=== PATIENT | female | born 1980 | race Caucasian/White ===

== ENCOUNTER 2018-06-03 10:38 | Emergency (ER) | payer MEDICAID ==
[~2018-06-03] VITALS: Ht 162.6 cm; Wt 54.4 kg
[~2018-06-03 10:38] MED LIST: A-B OTIC EAR DR15 ML OT; AMOXICILLIN500 M1 PO; AMOXICILLIN875 MG PO; CIPRO500 MG PO; FAMOTIDINE PO; FLEXERIL PO; HYDROCODONE-AP1 EAC6 PO; IBUPROFEN 400400 M2 PO; IBUPROFEN 800800 M1 PO; LEVAQUIN 500 M500 MG PO; NOHOMEMEDICATIONS; NORCO 5-325 TA1 EAC1 PO; PERCOCET 5-3251 EACH PO; PHENERGAN 25 MG25 M1 PO; PHENERGAN 25 MG25 MG PO; PRENATAL; PROMS25 WY RECTAL; TRAMADOL 50 MG50 MG PO; ULTRAM 50MG TAB50 MG PO; ZOFRAN; ZOFRAN ODT4 MG PO; ZOFRAN4 MG PO
[2018-06-03 10:48] VITALS: BP 129/65
[2018-06-03] MEDS ORDERED: MEDROLDOSEPACK PO (10:56)
[2018-06-03] MEDS ORDERED: PROMETHAZINE V473 ML PO (10:56)
[2018-06-03] MEDS ORDERED: ZPAK PO (10:56)
[2018-06-03] MEDS ORDERED: PROAIR HFA8.5 GM INH (10:57)
[2018-06-03] MEDS ORDERED: TESSALON PERLE100 MG PO (10:57)
== END 2018-06-03 11:07 | disposition home or self-care (01) ==
LOC: M.ERS 10:38
DX: J20.9 Acute bronchitis, unspecified (principal); J45.909 Unspecified asthma, uncomplicated; F17.210 Nicotine dependence, cigarettes, uncomplicated; Z90.711 Acquired absence of uterus with remaining cervical stump

== ENCOUNTER 2018-08-16 08:09 | Emergency (ER) | payer OTHER, MEDICAID ==
[~2018-08-16] VITALS: Ht 162.6 cm; Wt 56.7 kg
[~2018-08-16 08:09] MED LIST changes: +MEDROLDOSEPACK PO; +PROAIR HFA8.5 GM INH; +PROMETHAZINE V473 ML PO; +TESSALON PERLE100 MG PO; +ZPAK PO
[2018-08-16 08:38] LABS: HEMATOCRIT 39.5 % (37.0-47.0); HEMOGLOBIN 13.2 gm/dL (12.0-15.0); MCH 30.9 pg (26.0-34.0); MCHC 33.4 g/dL (28.0-37.0); MCV 92.5 fL (80.0-100.0); MPV 12.1 fl. (7.2-11.1); NUCLEATED RBCS 0 /100WBC; PLATELET COUNT* 144 thou/uL (150-400); RBC 4.26 mil/uL (4.20-5.00); RDW-CV 13.6 % (10.5-14.5); WBC 16.3 thou/uL (4.0-11.0)
[2018-08-16 08:46] LABS: CALCIUM 8.6 mg/dL (8.5-10.1); CREATININE 0.8 mg/dL (0.6-1.3); POTASSIUM 3.9 mmol/L (3.5-5.1)
[2018-08-16 08:50] LABS: TOTAL BILIRUBIN 0.4 mg/dL (<0.1-1.0); TOTAL PROTEIN 7.1 g/dL (6.4-8.2)
[2018-08-16] MEDS ORDERED: ZOFRAN ODT4 MG SUBLING ×2 (08:58→09:30)
[2018-08-16 09:20] LABS: ABSOLUTE LYMPHOCYTES 0.5 thou/uL (0.8-5.3); ABSOLUTE MONOCYTES 0.5 thou/uL (0.0-1.2); ABSOLUTE NEUTROPHILS 15.3 thou/uL (1.6-8.1)
[2018-08-16 09:21] LABS: PLATELET ESTIMATE ADEQUATE
[2018-08-16 09:36] VITALS: BP 101/52
== END 2018-08-16 09:38 | disposition home or self-care (01) ==
LOC: M.ERS 08:09
PROVIDERS: Family Medicine
DX: R11.2 Nausea with vomiting, unspecified (principal); R19.7 Diarrhea, unspecified; J45.909 Unspecified asthma, uncomplicated; Z90.710 Acquired absence of both cervix and uterus; F17.210 Nicotine dependence, cigarettes, uncomplicated

== ENCOUNTER 2018-10-22 03:50 | Emergency (ER) | payer OTHER, MEDICAID ==
[~2018-10-22] VITALS: Ht 162.6 cm; Wt 52.2 kg
[~2018-10-22 03:50] MED LIST changes: +ZOFRAN ODT4 MG SUBLING
[2018-10-22 04:14] LABS: ABSOLUTE BASOPHILS 0.1 thou/uL (0.0-0.2); ABSOLUTE LYMPHOCYTES 1.9 thou/uL (0.8-5.3); ABSOLUTE MONOCYTES 0.4 thou/uL (0.0-1.2); ABSOLUTE NEUTROPHILS 9.5 thou/uL (1.6-8.1); BASOPHILS 0.5 %; EOSINOPHILS 0.1 %; HEMATOCRIT 43.7 % (37.0-47.0); HEMOGLOBIN 14.3 gm/dL (12.0-15.0); LYMPHOCYTES 15.7 %; MCH 30.1 pg (26.0-34.0); MCHC 32.7 g/dL (28.0-37.0); MCV 92.1 fL (80.0-100.0); MONOCYTES 3.6 %; MPV 12.8 fl. (7.2-11.1); NUCLEATED RBCS 0 /100WBC; PLATELET COUNT* 168 thou/uL (150-400); POLYS 80.1 %; RBC 4.75 mil/uL (4.20-5.00); RDW-CV 13.5 % (10.5-14.5); WBC 11.9 thou/uL (4.0-11.0)
[2018-10-22 04:26] LABS: ALBUMIN 4.2 g/dL (3.4-5.0); POTASSIUM 3.5 mmol/L (3.5-5.1); TOTAL BILIRUBIN 0.6 mg/dL (<0.1-1.0); TOTAL PROTEIN 7.6 g/dL (6.4-8.2)
[2018-10-22 05:07] LABS: URINE BILIRUBIN NEGATIVE (Negative); URINE BLOOD NEGATIVE (Negative); URINE CLARITY CLEAR; URINE COLOR DARK YELLOW; URINE GLUCOSE-RANDOM 1+ (Negative); URINE LEUKOCYTES-REFLEX TRACE (Negative); URINE NITRITE-REFLEX NEGATIVE (Negative); URINE PROTEIN TRACE (Negative); URINE SPECIFIC GRAVITY >= 1.030 (1.005-1.030); URINE UROBILINOGEN 0.2 E.U./dl (0.2-1.0)
[2018-10-22 05:08] LABS: URINE KETONES 3+ (Negative)
[2018-10-22 05:10] LABS: AMP/METHAMP Negative (Negative); BARBITURATES Negative (Negative); BENZODIAZEPINES Negative (Negative); COCAINE Negative (Negative); METHADONE Negative (Negative); OPIATES Negative (Negative); PCP Negative (Negative); THC POSITIVE (Negative)
[2018-10-22 05:11] LABS: BACTERIA-REFLEX None Seen /HPF (None Seen); CASTS None Seen /LPF (None Seen); CRYSTALS None Seen /LPF (None Seen); MUCUS >6 Heavy strn/LPF (None Seen); SQUAMOUS >10 Many /LPF (0-3); URINE RBC 0-2 Rare /HPF (0-2); URINE WBC-REFLEX 0-5 Rare /HPF (0-5)
[2018-10-22] MEDS ORDERED: ULTRAM 50MG TAB50 MG PO (05:46)
[2018-10-22] MEDS ORDERED: PHENERGAN 25 MG25 M1 PO (05:46)
[2018-10-22 06:08] VITALS: BP 128/68
== END 2018-10-22 06:09 | disposition home or self-care (01) ==
LOC: M.ERS 03:50
PROVIDERS: Personal Emergency Response Attendant
DX: R11.2 Nausea with vomiting, unspecified (principal); R73.9 Hyperglycemia, unspecified; J45.909 Unspecified asthma, uncomplicated; Z90.710 Acquired absence of both cervix and uterus; F17.210 Nicotine dependence, cigarettes, uncomplicated

== ENCOUNTER 2019-04-15 19:15 | Emergency (ER) | payer OTHER, MEDICAID ==
[~2019-04-15] VITALS: Ht 162.6 cm; Wt 52.2 kg
[2019-04-15 19:21] VITALS: BP 144/78
[2019-04-15] MEDS ORDERED: TRAMADOL 50 MG50 MG PO (19:27)
[2019-04-15] MEDS ORDERED: AMOXICILLIN 50500 M1 PO (19:27)
== END 2019-04-15 19:53 | disposition home or self-care (01) ==
LOC: M.ERS 19:15
DX: S02.5XXA Fracture of tooth (traumatic), initial encounter for closed fracture (principal); F17.210 Nicotine dependence, cigarettes, uncomplicated; J45.909 Unspecified asthma, uncomplicated; Z90.711 Acquired absence of uterus with remaining cervical stump; X58.XXXA Exposure to other specified factors, initial encounter; Y92.89 Other specified places as the place of occurrence of the external cause; Y93.89 Activity, other specified; Y99.8 Other external cause status

== ENCOUNTER 2019-09-12 16:54 | Emergency (ER) | payer OTHER, MEDICAID ==
[~2019-09-12] VITALS: Ht 162.6 cm; Wt 49.9 kg
[~2019-09-12 16:54] MED LIST changes: +AMOXICILLIN 50500 M1 PO
[2019-09-12 19:18] VITALS: BP 124/70
== END 2019-09-12 19:19 | disposition home or self-care (01) ==
LOC: M.ERS 16:54
DX: M25.512 Pain in left shoulder (principal); J45.909 Unspecified asthma, uncomplicated; F17.210 Nicotine dependence, cigarettes, uncomplicated; Z88.5 Allergy status to narcotic agent; Z88.6 Allergy status to analgesic agent; Z98.51 Tubal ligation status; Z90.711 Acquired absence of uterus with remaining cervical stump; V89.2XXA Person injured in unspecified motor-vehicle accident, traffic, initial encounter; Y93.89 Activity, other specified; Y92.89 Other specified places as the place of occurrence of the external cause; Y99.8 Other external cause status